=== PATIENT | female | born 1980 | race African-American/Black ===

== ENCOUNTER 2017-06-16 00:11 | Emergency (ER) | payer OTHER ==
--- NOTE | 2017-06-16 00:28 | PDOC ---
History of Present Illness - General History Source: Patient Exam Limitations: No Limitations - History of Present Illness Initial Comments: 06/16/17 00:27 36-year-old female with no medical history presents to the emergency department complaining of left lateral ankle pain after an inversion twist 2 weeks ago when she is stepped her foot down. Patient denies any knee/Achilles or foot pain. Pain is described as 2/10 dull nonradiating intermittent discomfort. Pain is exacerbated intermittently on weight-bear and alleviated at rest. Patient denies any other injuries or complaints. Patient denies headache, dizziness, lightheadedness, visual disturbance, chest pain, shortness of breath. Occurred: reports: other (x2 weeks ago) Lower Extremity Pain Location: left: ankle (lat malleolus) Method of Injury: Yes: twisted <Sb Barreto - Last Filed: 06/16/17 01:35> - History of Present Illness Initial Comments: 06/16/17 05:50 Pt seen by Midlevel Provider under my direct supervision. Documentation has been prepared under my direction and personally reviewed by me in its entirety. I attest that this document accurately reflects all work, treatment, procedures and medical decision-making performed. I agree with plan as outlined by Midlevel Provider. (Bharati Zelaya I) <Bharati Zelaya I - Last Filed: 06/16/17 05:58> - General Stated Complaint: LFT ANKLE INJURY Time Seen by Provider: 06/16/17 00:18 Lower Ext. Injury Location - Specific Injury Location Knees: left no evidence of injury, left normal range of motion, left non-tender , left normal inspection Ankle: left no evidence of injury, left normal inspection, left normal range of motion, left abrasions/laceration, left non-tender Foot: left foot no evidence of injury, left foot normal inspection, left foot normal range of motion <Sb Barreto - Last Filed: 06/16/17 01:35> Extremity Pain Location - Extremity Pain Location Extremity Pain Locations: left: ankle (lat malleolus) <Sb Barreto - Last Filed: 06/16/17 01:35> Past History - Travel Traveled outside of the country in the last 30 days: No Close contact w/someone who was outside of country & ill: No <Sb Barreto - Last Filed: 06/16/17 01:35> <HenryBharati connolly Edith - Last Filed: 06/16/17 05:58> - Past Medical History Allergies/Adverse Reactions: Allergies Allergy/AdvReac Type Severity Reaction Status Date / Time No Known Allergies Allergy Verified 06/16/17 00:32 Home Medications: Ambulatory Orders NK [No Known Home Medication] 06/16/17 Review of Systems - Review of Systems Able to Perform ROS?: Yes Comments:: 06/16/17 00:25 left lat ankle pain neg ext numbness/tingling sensation CONSTITUTIONAL: Absent: fever, chills, diaphoresis, generalized weakness, malaise, loss of appetite MUSCULOSKELETAL: Absent: myalgia, arthralgia, joint swelling SKIN: Absent: rash, itching, pallor HEMATOLOGIC/IMMUNOLOGIC: Absent: easy bleeding, easy bruising, lymphadenopathy, frequent infections 06/16/17 00:28 CONSTITUTIONAL: Absent: fever, chills, diaphoresis, generalized weakness, malaise, loss of appetite HEENT: Absent: rhinorrhea, nasal congestion, throat pain, throat swelling, difficulty swallowing, mouth swelling, ear pain, eye pain, visual Changes CARDIOVASCULAR: Absent: chest pain, loss of consciousness, palpitations, irregular heart rate, peripheral edema RESPIRATORY: Absent: cough, shortness of breath, dyspnea with exertion, orthopnea, wheezing, stridor, hemoptysis GASTROINTESTINAL: Absent: abdominal pain, abdominal distension, nausea, vomiting, diarrhea, constipation, melena, hematochezia GENITOURINARY: Absent: dysuria, frequency, urgency, hesitancy, hematuria, flank pain, genital pain HEMATOLOGIC/IMMUNOLOGIC: Absent: easy bleeding, easy bruising, lymphadenopathy, frequent infections ENDOCRINE: Absent: unexplained weight gain, unexplained weight loss, heat intolerance, cold intolerance NEUROLOGIC: Absent: headache, focal weakness or paresthesias, dizziness, unsteady gait, seizure, mental status changes, bladder or bowel incontinence PSYCHIATRIC: Absent: anxiety, depression, suicidal or homicidal ideation, hallucinations. Is the patient limited Romanian proficient: No <EstevanSb - Last Filed: 06/16/17 01:35> *Physical Exam - Physical Exam Comments: 06/16/17 00:26 eft ankle F.R.O.M. neg pain on palp 2+ dp pulse neg obv def Left foot neg pain to 5th MT head 2+ pedal pulse neg pain on palp LEft knee F.R.O.M. neg pain on palp 06/16/17 00:26 GENERAL: Well developed, well nourished. Awake and alert. No acute distress. HEENT: Normocephalic, atraumatic. PERRLA, EOMI. No conjunctival pallor. Sclera are non- icteric. Moist mucous membranes. Oropharynx is clear. NECK: Supple. Full ROM. No JVD. Carotid pulses 2+ and symmetric, without bruits. No thyromegaly. No lymphadenopathy. CARDIOVASCULAR: Regular rate and rhythm. No murmurs, rubs, or gallops. Distal pulses are 2+ and symmetric. PULMONARY: No evidence of respiratory distress. Lungs clear to auscultation bilaterally. No wheezing, rales or rhonchi. ABDOMINAL: Soft. Non-tender. Non-distended. No rebound or guarding. No organomegaly. Normoactive bowel sounds. SKIN: Warm and dry. Normal capillary refill. No rashes. No jaundice. NEUROLOGICAL: Alert, awake, appropriate. Cranial nerves 2-12 intact. No deficits to light touch and temperature in face, upper extremities and lower extremities. No motor deficits in the in face, upper extremities and lower extremities. Normoreflexic in the upper and lower extremities. Normal speech. Toes are down- going bilaterally. Gait is normal without ataxia. PSYCHIATRIC: Cooperative. Good eye contact. Appropriate mood and affect. <Sb Barreto - Last Filed: 06/16/17 01:35> - Vital Signs Last Vital Signs Temp Pulse Resp BP Pulse Ox 98.1 F 88 17 157/109 100 06/16/17 00:28 06/16/17 00:28 06/16/17 00:28 06/16/17 00:28 06/16/17 00:28 <Bharati Zelaya I - Last Filed: 06/16/17 05:58> ED Treatment Course - RADIOLOGY Radiology Studies Ordered: Category Date Time Status ANKLE-LEFT [RAD] Stat Radiology 06/16/17 00:15 Ordered Radiograph Interpretation: 06/16/17 00:26 Left ankle xray neg fx/dislocations <Sb Barreto - Last Filed: 06/16/17 01:35> - ADDITIONAL ORDERS Additional order review: Laboratory Results 06/16/17 00:19 Urine HCG, Qual Negative <Bharati Zelaya I - Last Filed: 06/16/17 05:58> *DC/Admit/Observation/Transfer - Discharge Dispostion Admit: No <Castro Barretoui - Last Filed: 06/16/17 01:35> <Bharati Zelaya I - Last Filed: 06/16/17 05:58> Diagnosis at time of Disposition: Left ankle sprain Qualifiers: Encounter type: initial encounter Involved ligament of ankle: other ligament Qualified Code(s): S93.492A - Sprain of other ligament of left ankle, initial encounter - Discharge Dispostion Disposition: HOME Condition at time of disposition: Stable - Referrals Referrals: Kel Kam [Primary Care Provider] - Delmer Munoz MD [Staff Physician] - - Patient Instructions Printed Discharge Instructions: DI for Ankle Sprain Additional Instructions: Ice; 20 mins on alternating with 20 mins off for 48 hours while awake. Rest Elevate Follow up with your orthopedic surgeon or the one listed on the discharge form. Return to the ER for severe/persistent/worsening symptoms, extremity numbness/ tingling sensation.
[2017-06-16 00:29] VITALS: BP 157/109; PULSE 88; TEMP 98.1; BMI 32.9
== END 2017-06-16 02:00 | disposition home or self-care (01) ==
LOC: JER 00:11
DX: S93.492A Sprain of other ligament of left ankle, initial encounter (principal); X50.1XXA Overexertion from prolonged static or awkward postures, initial encounter; Y93.89 Activity, other specified; Y92.89 Other specified places as the place of occurrence of the external cause; Y99.8 Other external cause status
CPT/HCPCS: 73610-TC-LT; 84703; 99281-25

== ENCOUNTER 2021-08-31 04:35 | Day surgery (SDC) | payer OTHER ==
[2021-08-23 10:59] VITALS: BMI 39.4
[2021-08-31 08:28] VITALS: TEMP 97
[2021-08-31 08:55] VITALS: BP 105/63; PULSE 72
== END 2021-08-31 09:45 | disposition home or self-care (01) ==
LOC: JASU-ENDO 04:35
PROVIDERS: ATTEND Internal Medicine Gastroenterology
PROC: 0DJD8ZZ Inspection of Lower Intestinal Tract, Via Natural or Artificial Opening Endoscopic (ICD-10-PCS; principal; 2021-08-31 08:00)
DX: D50.9 Iron deficiency anemia, unspecified (principal)
CPT/HCPCS: 81025

== ENCOUNTER 2024-02-27 09:49 | Emergency (ER) | payer OTHER ==
[2024-02-27 09:58] VITALS: BP 128/78; PULSE 72; RESP 17; TEMP 97.8; BMI 38.9
[2024-02-27 11:00] LABS: BASO % 0.7 % (0-2.0); EOS % 4.9 % (0-4.5); HEMATOCRIT 31.7 % (32.4-45.2); HEMOGLOBIN 9.8 GM/dL (10.7-15.3); LYMPH % 22.9 % (8-40); MCH 20.2 pg (25.7-33.7); MCHC 30.9 g/dl (32.0-36.0); MEAN CELL VOLUME 65.2 fl (80-96); MEAN PLT VOLUME 8.7 fl (7.5-11.1); MONO % 6.4 % (3.8-10.2); NEUT % 65.1 % (42.8-82.8); PLATELET COUNT 343 10^3/uL (134-434); RBC 4.86 M/mm3 (3.60-5.2); RDW 21.6 % (11.6-15.6); WHITE BLOOD COUNT 7.6 K/mm3 (4.0-10.0)
[2024-02-27 11:15] LABS: CALCIUM 8.9 mg/dL (8.5-10.1); MAGNESIUM 2.1 mg/dL (1.8-2.4)
[2024-02-27 11:19] LABS: CREATININE 0.7 mg/dL (0.55-1.3); TOT PROT 7.4 g/dl (6.4-8.2)
[2024-02-27 11:21] LABS: BILIRUBIN,TOTAL 0.9 mg/dL (0.2-1)
[2024-02-27 11:46] LABS: ANISOCYTOSIS 2+; MACROCYTOSIS 0; OVALOCYTE 1+; TARGET CELLS 1+
== END 2024-02-27 13:44 | disposition home or self-care (01) ==
LOC: JER 09:49
DX: R07.9 Chest pain, unspecified (principal); R00.2 Palpitations; R94.6 Abnormal results of thyroid function studies
CPT/HCPCS: 36415; 71046-TC-FY; 80053; 83735; 84439; 84443; 84484; 84703; 85025; 93005; 93010; 99285-25